=== PATIENT | female | born 1975 | race Caucasian/White ===

== ENCOUNTER 2020-07-06 09:42 | Observation (INO) ==
[2020-07-06] MEDS ORDERED: Ipratropium/Albuterol Neb 3 ML IH ONE (10:16)
[2020-07-06 10:55] LABS: Basophils % 0.3 %; Eosinophils # 0.1 K/mcL (0.0-0.6); Eosinophils % 1.1 %; Immature Granulocytes % 0.3 % (0-4); Lymphocytes # 1.2 K/mcL (0.6-4.6); Lymphocytes % 13.1 %; Mean Corpuscular HGB Conc 32.4 g/dL (31.6-35.5); Mean Corpuscular Hemoglobin 29.7 pg (28.0-33.3); Mean Corpuscular Volume 91.6 fL (83.0-100.0); Mean Platelet Volume 10.5 fL (9.4-12.4); Monocytes # 0.6 K/mcL (0.0-1.3); Monocytes % 6.8 %; Platelet Count 201 K/mcL (140-400); Red Blood Count 4.04 M/mcL (3.82-4.97); Red Cell Distribution Width 12.5 % (11.5-14.5); Segmented Neutrophils % 78.4 %; White Blood Count 8.9 K/mcL (4.3-11.1)
[2020-07-06 10:58] LABS: Prothrombin Time 11.3 Seconds (9.4-12.1)
[2020-07-06 11:00] LABS: Activated Partial Thrombo Time 26.2 Seconds (26.0-36.0)
[2020-07-06 11:10] LABS: Alanine Aminotransferase 14 Units/L (7-52); Albumin 3.7 g/dL (3.5-5.7); Albumin/Globulin Ratio 1.2 (1.1-2.2); Alkaline Phosphatase 92 Units/L (34-104); Aspartate Amino Transferase 11 Units/L (13-39); BUN/Creatinine Ratio 17 (6-26); Bilirubin,Direct 0.1 mg/dL (0.0-0.2); Bilirubin,Indirect 0.5 mg/dL (0.0-1.0); Bilirubin,Total 0.6 mg/dL (0.3-1.0); Blood Urea Nitrogen 15 mg/dL (6-20); C-Reactive Protein 132 mg/L (Less than 10); Calcium 8.8 mg/dL (8.6-10.3); Carbon Dioxide 26 mEq/L (23-29); Chloride 103 mEq/L (98-107); Globulin 3.2 g/dL (2.4-3.5); Glucose 139 mg/dL (70-105); Lactate Dehydrogenase 133 Units/L (140-271); Magnesium 1.9 mg/dL (1.6-2.6); Osmolality,Calculated 287 (280-300); Phosphorous 2.3 mg/dL (2.7-4.5); Potassium 4.1 mEq/L (3.5-5.1); Sodium 137 mEq/L (136-145); Total Protein 6.9 g/dL (6.4-8.9); Troponin I < 0.03 ng/mL (< 0.04); eGFR For African Americans > 60 (> 60); eGFR For Non-African Americans > 60 (> 60)
[2020-07-06 11:28] LABS: Ferritin 67 ng/mL (10-120)
[2020-07-06] MEDS ORDERED: cefTRIAXone 1,000 MG in 0.9 % Sodium Chloride Mini Bag 100 ML IVPB ONE (11:47)
[2020-07-06] MEDS ORDERED: Azithromycin 500 MG in 0.9 % Sodium Chloride 250 ML IVPB ONE (11:47)
[2020-07-06] MEDS ORDERED: Isovue-370 500 ML BOTTLE IVP ONE (11:47)
[2020-07-06] MEDS ORDERED: 0.9 % Sodium Chloride 1,000 ML IVC ONE (12:28)
[2020-07-06] MEDS ORDERED: Naloxone 0.4 MG/ML INJ IVP PRN (14:12)
[2020-07-06] MEDS ORDERED: *HR* HYDROcodone/Acet 5/325 mg TABLET PO PRN (14:12)
[2020-07-06] MEDS ORDERED: Ondansetron 4 MG/2 ML VIAL IVP PRN (14:12)
[2020-07-06] MEDS ORDERED: Acetaminophen 325 MG TABLET PO PRN (14:12)
[2020-07-06] MEDS: Ipratropium 1 PUFF INHALER IH SCH ×2 (15:57→22:07)
[2020-07-06] MEDS ORDERED: Perflutren Lipid Microsphere 1.3 ML in 0.9 % Sodium Chloride 8.7 ML IVP PRN (16:18)
[2020-07-06] MEDS: predniSONE 20 MG TABLET PO SCH (16:46)
[2020-07-06 17:20] LABS: Adenovirus Not Detected (Not Detect); Bordetella Pertussis Not Detected (Not Detect); Chlamydophila pneumoniae Not Detected (Not Detect); Coronavirus 229E Not Detected (Not Detect); Coronavirus HKU1 Not Detected (Not Detect); Coronavirus NL63 Not Detected (Not Detect); Coronavirus OC43 Not Detected (Not Detect); Human Metapneumovirus Not Detected (Not Detect); Human Rhinovirus/Enterovirus Not Detected (Not Detect); Influenza A Subtype 2009 H1 Not Detected (Not Detect); Influenza B Not Detected (Not Detect); Mycoplasma pneumoniae Not Detected (Not Detect); Parainfluenza Virus 1 Not Detected (Not Detect); Parainfluenza Virus 2 Not Detected (Not Detect); Parainfluenza Virus 3 Not Detected (Not Detect); Parainfluenza Virus 4 Not Detected (Not Detect); Respiratory Syncytial Virus Not Detected (Not Detect); SARS-CoV-2 Not Detected (Not Detect)
[2020-07-06 19:29] LABS: Chol/HDL Ratio 2.6 (0-4.9); Estimated Average Glucose 120 mg/dl; Hemoglobin A1C 5.8 %
[2020-07-06 19:43] LABS: Thyroid Stimulating Hormone 0.857 mcIU/mL (0.340-5.600)
[2020-07-06 21:59] LABS: Amphetamine Screen,Urine Negative ng/mL (Cutoff=1000); Barbiturate Screen,Urine Negative ng/mL (Cutoff=200); Benzodiazepines Screen,Urine Negative ng/mL (Cutoff=200); Cannabinoid Screen,Urine Negative ng/mL (Cutoff = 50); Cocaine Screen,Urine Negative ng/mL (Cutoff= 300); Opiate Screen,Urine Negative ng/mL (Cutoff=300); Phencyclidine Screen,Urine Negative ng/mL (Cutoff=25)
[2020-07-06] MEDS ORDERED: ALPRAZolam 1 MG TABLET PO PRN (22:31)
[2020-07-06] MEDS: lamoTRIgine 100 MG TABLET PO SCH (23:10)
[2020-07-06] MEDS: Baclofen 10 MG TABLET PO SCH (23:11)
[2020-07-06] MEDS: Gabapentin 300 MG CAPSULE PO SCH (23:12)
[2020-07-06] MEDS: traZODone 50 MG TABLET PO SCH (23:12)
[2020-07-07 00:52] LABS: Basophils % 0.3 %; Eosinophils % 0.1 %; Hematocrit 36.3 % (35.3-44.9); Lymphocytes # 0.7 K/mcL (0.6-4.6); Lymphocytes % 10.5 %; Mean Corpuscular HGB Conc 33.1 g/dL (31.6-35.5); Mean Corpuscular Hemoglobin 30.5 pg (28.0-33.3); Mean Corpuscular Volume 92.1 fL (83.0-100.0); Mean Platelet Volume 10.4 fL (9.4-12.4); Monocytes # 0.1 K/mcL (0.0-1.3); Monocytes % 0.9 %; Neutrophils # 5.9 K/mcL (1.6-8.9); Platelet Count 209 K/mcL (140-400); Red Blood Count 3.94 M/mcL (3.82-4.97); Red Cell Distribution Width 12.6 % (11.5-14.5); Segmented Neutrophils % 87.2 %; White Blood Count 6.8 K/mcL (4.3-11.1)
[2020-07-07 01:02] LABS: Prothrombin Time 11.3 Seconds (9.4-12.1)
[2020-07-07 01:15] LABS: Alanine Aminotransferase 13 Units/L (7-52); Albumin 3.7 g/dL (3.5-5.7); Albumin/Globulin Ratio 1.2 (1.1-2.2); Alkaline Phosphatase 86 Units/L (34-104); Aspartate Amino Transferase 11 Units/L (13-39); BUN/Creatinine Ratio 22 (6-26); Bilirubin,Total 0.4 mg/dL (0.3-1.0); Blood Urea Nitrogen 13 mg/dL (6-20); C-Reactive Protein 132 mg/L (Less than 10); Calcium 8.8 mg/dL (8.6-10.3); Carbon Dioxide 21 mEq/L (23-29); Chloride 104 mEq/L (98-107); Globulin 3.2 g/dL (2.4-3.5); Glucose 267 mg/dL (70-105); Lactate Dehydrogenase 130 Units/L (140-271); Magnesium 2.1 mg/dL (1.6-2.6); Osmolality,Calculated 285 (280-300); Phosphorous 1.9 mg/dL (2.7-4.5); Potassium 4.3 mEq/L (3.5-5.1); Sodium 133 mEq/L (136-145); Total Protein 6.9 g/dL (6.4-8.9); Troponin I < 0.03 ng/mL (< 0.04); eGFR For African Americans > 60 (> 60); eGFR For Non-African Americans > 60 (> 60)
[2020-07-07 01:32] LABS: Ferritin 90 ng/mL (10-120)
[2020-07-07] MEDS ORDERED: Sodium Phosphate 30 MMOL in D5% in Water 100 ML IVPB ONE (01:39)
[2020-07-07] MEDS: Ipratropium 1 PUFF INHALER IH SCH ×4 (03:57→21:31)
[2020-07-07] MEDS: *HR* Enoxaparin 40 MG/0.4 ML SYRINGE SQ SCH (05:09)
[2020-07-07] MEDS: Gabapentin 300 MG CAPSULE PO SCH ×3 (07:37→20:47)
[2020-07-07] MEDS: Multivit/Ca/Min/Fe/FA 1 TAB TABLET PO SCH (07:37)
[2020-07-07] MEDS: Celecoxib 200 MG CAPSULE PO SCH (07:37)
[2020-07-07] MEDS: Baclofen 10 MG TABLET PO SCH ×3 (07:37→20:47)
[2020-07-07] MEDS: predniSONE 20 MG TABLET PO SCH (07:38)
[2020-07-07] MEDS ORDERED: Gabapentin 300 MG CAPSULE PO SCH (09:00)
[2020-07-07] MEDS ORDERED: *HR* Midazolam HCl 2 MG/2 ML VIAL ONE (09:59)
[2020-07-07] MEDS ORDERED: *HR* FentaNYL (PF) 100 MCG/2 ML VIAL ONE (10:00)
[2020-07-07] MEDS ORDERED: *HR* Propofol 200 MG/20 ML VIAL IVP ONE ×2 (10:00→11:01)
[2020-07-07] MEDS ORDERED: *HR* Succinylcholine 200 MG/10 ML VIAL IVP ONE (10:03)
[2020-07-07] MEDS ORDERED: *HR* Rocuronium Bromide 50 MG/5 ML VIAL ONE (10:03)
[2020-07-07] MEDS ORDERED: Ondansetron 4 MG/2 ML VIAL ONE (10:03)
[2020-07-07] MEDS ORDERED: Lidocaine -MPF 2% 2 ML VIAL ONE (10:03)
[2020-07-07] MEDS ORDERED: Acetaminophen IV 1,000 MG/100 ML BAG IVPB ONE (11:55)
[2020-07-07] MEDS ORDERED: Ipratropium/Albuterol Neb 3 ML IH ONE (11:57)
[2020-07-07 16:42] LABS: Appearance of Body Fluid Clear (Clear); Volume of Body Fluid 15 mL
[2020-07-07] MEDS ORDERED: Benzonatate 100 MG CAPSULE PO PRN (18:25)
[2020-07-07] MEDS: Doxycycline 100 MG in 0.9 % Sodium Chloride Mini Bag 100 ML IVPB SCH (20:37)
[2020-07-07] MEDS: traZODone 50 MG TABLET PO SCH (20:48)
[2020-07-07] MEDS: lamoTRIgine 100 MG TABLET PO SCH (20:48)
[2020-07-07] MEDS ORDERED: lamoTRIgine 100 MG TABLET PO SCH (21:00)
[2020-07-07] MEDS ORDERED: traZODone 50 MG TABLET PO SCH (21:00)
[2020-07-07] MEDS ORDERED: Baclofen 10 MG TABLET PO SCH (21:00)
[2020-07-07] MEDS: Vancomycin 2,000 MG/520 ML IV.SOLN IVPB SCH (22:23)
[2020-07-07] MEDS: Piperacillin/Tazobactam 3.375 GM in 0.9 % Sodium Chloride Mini Bag 100 ML IVPB SCH (22:23)
[2020-07-08] MEDS: Ipratropium 1 PUFF INHALER IH SCH ×2 (03:40→10:07)
[2020-07-08] MEDS: Doxycycline 100 MG in 0.9 % Sodium Chloride Mini Bag 100 ML IVPB SCH (05:23)
[2020-07-08] MEDS: *HR* Enoxaparin 40 MG/0.4 ML SYRINGE SQ SCH (05:23)
[2020-07-08 06:44] LABS: Basophils # 0.1 K/mcL (0.0-0.2); Basophils % 0.5 %; Eosinophils % 0.2 %; Hemoglobin 11.6 g/dL (11.5-15.4); Immature Granulocytes % 1.9 % (0-4); Lymphocytes # 2.1 K/mcL (0.6-4.6); Lymphocytes % 23.1 %; Mean Corpuscular HGB Conc 32.2 g/dL (31.6-35.5); Mean Corpuscular Hemoglobin 30.1 pg (28.0-33.3); Mean Corpuscular Volume 93.3 fL (83.0-100.0); Mean Platelet Volume 10.4 fL (9.4-12.4); Monocytes # 0.5 K/mcL (0.0-1.3); Monocytes % 5.7 %; Neutrophils # 6.2 K/mcL (1.6-8.9); Platelet Count 226 K/mcL (140-400); Red Blood Count 3.86 M/mcL (3.82-4.97); Red Cell Distribution Width 12.8 % (11.5-14.5); Segmented Neutrophils % 68.6 %; White Blood Count 9.1 K/mcL (4.3-11.1)
[2020-07-08 07:20] LABS: Lactate Dehydrogenase 132 Units/L (140-271)
[2020-07-08 07:21] LABS: Ferritin 85 ng/mL (10-120)
[2020-07-08 07:24] LABS: C-Reactive Protein 37 mg/L (Less than 10)
[2020-07-08 07:41] VITALS: BP 114/65
[2020-07-08] MEDS: Multivit/Ca/Min/Fe/FA 1 TAB TABLET PO SCH (08:36)
[2020-07-08] MEDS: Vancomycin 2,000 MG/520 ML IV.SOLN IVPB SCH (08:37)
[2020-07-08] MEDS: predniSONE 20 MG TABLET PO SCH (08:37)
[2020-07-08] MEDS: Celecoxib 200 MG CAPSULE PO SCH (08:37)
[2020-07-08] MEDS: Baclofen 10 MG TABLET PO SCH (08:37)
[2020-07-08] MEDS: Gabapentin 300 MG CAPSULE PO SCH (08:37)
[2020-07-08] MEDS: Piperacillin/Tazobactam 3.375 GM in 0.9 % Sodium Chloride Mini Bag 100 ML IVPB SCH (08:38)
[2020-07-08] MEDS ORDERED: CICLOPIROX TP SCH (09:00)
[2020-07-09] MEDS ORDERED: Clotrimazole 1% CRM 15 GM TUBE TP SCH (09:00)
[2020-07-10 04:06] LABS: Influenza A PCR Body Fluid NOT DETECTED; Influenza B PCR Body Fluid NOT DETECTED; RVP Body Fluid Source BAL
[2020-07-10 07:43] LABS: RSV PCR Body Fluid NOT DETECTED
== END 2020-07-08 14:59 | disposition home or self-care (01) ==
LOC: EMEROOARM 09:42 → 3BNU 09:42 → SUATTDRO 14:11 → 3BNU 14:47
PROVIDERS: ADMIT Internal Medicine; ATTEND Internal Medicine

== ENCOUNTER 2020-07-26 06:05 | Observation (INO) ==
[2020-07-26] MEDS ORDERED: 0.9 % Sodium Chloride 1,000 ML IVC ONE ×2 (06:16)
[2020-07-26] MEDS ORDERED: Isovue-370 500 ML BOTTLE IVP ONE (06:17)
[2020-07-26] MEDS ORDERED: levoFLOXacin 750 MG/150 ML 750 MG/150 ML BAG IVPB ONE (06:38)
[2020-07-26 06:41] LABS: Basophils % 0.2 %; Eosinophils % 0.3 %; Hematocrit 40.4 % (35.3-44.9); Immature Granulocytes % 0.2 % (0-4); Lymphocytes # 0.8 K/mcL (0.6-4.6); Lymphocytes % 8.7 %; Mean Corpuscular HGB Conc 32.2 g/dL (31.6-35.5); Mean Corpuscular Hemoglobin 29.7 pg (28.0-33.3); Mean Corpuscular Volume 92.4 fL (83.0-100.0); Mean Platelet Volume 10.1 fL (9.4-12.4); Monocytes # 0.2 K/mcL (0.0-1.3); Monocytes % 1.8 %; Neutrophils # 7.9 K/mcL (1.6-8.9); Platelet Count 225 K/mcL (140-400); Red Blood Count 4.37 M/mcL (3.82-4.97); Red Cell Distribution Width 12.6 % (11.5-14.5); Segmented Neutrophils % 88.8 %; White Blood Count 8.9 K/mcL (4.3-11.1)
[2020-07-26 07:02] LABS: BUN/Creatinine Ratio 25 (6-26); Blood Urea Nitrogen 17 mg/dL (6-20); Calcium 8.5 mg/dL (8.6-10.3); Carbon Dioxide 29 mEq/L (23-29); Chloride 101 mEq/L (98-107); Glucose 158 mg/dL (70-105); Osmolality,Calculated 285 (280-300); Potassium 3.9 mEq/L (3.5-5.1); Sodium 135 mEq/L (136-145); eGFR For African Americans > 60 (> 60); eGFR For Non-African Americans > 60 (> 60)
[2020-07-26 07:03] LABS: Troponin I < 0.03 ng/mL (< 0.04)
[2020-07-26] MEDS ORDERED: Vancomycin 2,000 MG/520 ML IV.SOLN IVPB ONE (07:28)
[2020-07-26] MEDS ORDERED: Piperacillin/Tazobactam 3.375 GM in 0.9 % Sodium Chloride Mini Bag 100 ML IVPB ONE (07:29)
[2020-07-26 07:46] LABS: Adenovirus Not Detected (Not Detect); Bordetella Pertussis Not Detected (Not Detect); Chlamydophila pneumoniae Not Detected (Not Detect); Coronavirus 229E Not Detected (Not Detect); Coronavirus HKU1 Not Detected (Not Detect); Coronavirus NL63 Not Detected (Not Detect); Coronavirus OC43 Not Detected (Not Detect); Human Metapneumovirus Not Detected (Not Detect); Human Rhinovirus/Enterovirus Not Detected (Not Detect); Influenza A Subtype 2009 H1 Not Detected (Not Detect); Influenza B Not Detected (Not Detect); Mycoplasma pneumoniae Not Detected (Not Detect); Parainfluenza Virus 1 Not Detected (Not Detect); Parainfluenza Virus 2 Not Detected (Not Detect); Parainfluenza Virus 3 Not Detected (Not Detect); Parainfluenza Virus 4 Not Detected (Not Detect); Respiratory Syncytial Virus Not Detected (Not Detect); SARS-CoV-2 Not Detected (Not Detect)
[2020-07-26] MEDS ORDERED: Piperacillin/Tazobactam 3.375 GM in 0.9 % Sodium Chloride Mini Bag 100 ML IVP ONE (08:21)
[2020-07-26] MEDS ORDERED: Naloxone 0.4 MG/ML INJ IVP PRN ×2 (08:23→09:20)
[2020-07-26] MEDS ORDERED: Perflutren Lipid Microsphere 1.3 ML in 0.9 % Sodium Chloride 8.7 ML IVP PRN (09:21)
[2020-07-26] MEDS ORDERED: 0.9 % Sodium Chloride 1,000 ML IVC SCH (09:30)
[2020-07-26] MEDS: Acetaminophen 325 MG TABLET PO PRN ×2 (13:42→22:16)
[2020-07-26] MEDS: Piperacillin/Tazobactam 3.375 GM in 0.9 % Sodium Chloride Mini Bag 100 ML IVPB SCH (16:01)
[2020-07-26] MEDS ORDERED: Baclofen 10 MG TABLET PO SCH (21:00)
[2020-07-26] MEDS ORDERED: traZODone 50 MG TABLET PO SCH (21:00)
[2020-07-26] MEDS ORDERED: lamoTRIgine 100 MG TABLET PO SCH (21:00)
[2020-07-26] MEDS ORDERED: Vancomycin 2,000 MG/520 ML IV.SOLN IVPB SCH (21:00)
[2020-07-26] MEDS: 0.9 % Sodium Chloride 1,000 ML IVC SCH (21:50)
[2020-07-26] MEDS: ALPRAZolam 1 MG TABLET PO PRN (22:15)
[2020-07-27] MEDS: Piperacillin/Tazobactam 3.375 GM in 0.9 % Sodium Chloride Mini Bag 100 ML IVPB SCH ×2 (00:32→08:29)
[2020-07-27 01:14] LABS: Hematocrit 33.3 % (35.3-44.9); Mean Corpuscular HGB Conc 32.1 g/dL (31.6-35.5); Mean Corpuscular Volume 90.2 fL (83.0-100.0); Mean Platelet Volume 10.3 fL (9.4-12.4); Platelet Count 194 K/mcL (140-400); Red Blood Count 3.69 M/mcL (3.82-4.97); Red Cell Distribution Width 12.5 % (11.5-14.5); White Blood Count 12.6 K/mcL (4.3-11.1)
[2020-07-27 01:15] LABS: Hemoglobin 10.7 g/dL (11.5-15.4)
[2020-07-27 01:21] LABS: BUN/Creatinine Ratio 20 (6-26); Blood Urea Nitrogen 12 mg/dL (6-20); Calcium 8.2 mg/dL (8.6-10.3); Carbon Dioxide 23 mEq/L (23-29); Chloride 109 mEq/L (98-107); Glucose 164 mg/dL (70-105); Osmolality,Calculated 285 (280-300); Potassium 3.9 mEq/L (3.5-5.1); Sodium 136 mEq/L (136-145); eGFR For African Americans > 60 (> 60); eGFR For Non-African Americans > 60 (> 60)
[2020-07-27] MEDS: ALPRAZolam 1 MG TABLET PO PRN (05:39)
[2020-07-27] MEDS ORDERED: *HR* Enoxaparin 40 MG/0.4 ML SYRINGE SQ SCH (06:00)
[2020-07-27] MEDS: 0.9 % Sodium Chloride 1,000 ML IVC SCH (08:32)
[2020-07-27] MEDS ORDERED: levoFLOXacin 750 MG TABLET PO SCH (09:00)
[2020-07-27 10:46] VITALS: BP 144/86
[2020-07-27] MEDS ORDERED: FLU Vac QV 20-21 (6Month+)/PF 0.5 ML SYRINGE IM ONE (11:02)
== END 2020-07-27 12:35 | disposition home or self-care (01) ==
LOC: EMEROOARM 06:05 → 2ANU 06:05 → SUATTDRO 08:52 → 2ANU 10:20
PROVIDERS: ADMIT Student in an Organized Health Care Education/Training Program; ATTEND Family Medicine